=== PATIENT | female | born 1970 | race Two or more races ===

== ENCOUNTER 2024-07-20 13:22 | Emergency (ER) | payer MEDICAID, SELFPAY ==
[2024-07-20 13:24] VITALS: BMI 24.7
[2024-07-20 13:38] VITALS: BP 117/76; PULSE 55; RESP 18; TEMP 36.9; O2SAT 97
--- NOTE | 2024-07-20 13:43 | XR_ITS ---
Examination: CT abdomen and pelvis without contrast. Coronal 3-D reconstructions. Sagittal 2-D reconstructions. Date and time of exam:July 20, 2024 1558 hours INDICATIONS: Right-sided flank pain beginning this morning CTDI: vol (mGy): 7.96 DLP: (mGycm): 431 Technique: Axial images of the abdomen have been obtained, 3 mm slice thickness Intravenous contrast material has not been administered. Low dose protocols were performed. One or more of the following dose reduction techniques were used; automated exposure control, adjustment of the mA and/or KV according to patient size, use of iterative reconstruction technique. Findings: 23 mm right liver cyst Contracted gallbladder Spleen not enlarged No pancreatic or adrenal mass 1 mm nonobstructing right renal calculus Aorta normal size No hydronephrosis or ureteral calculi Normal appendix No bowel obstruction Anteverted uterus Trace free fluid in the pelvis No bladder mass or bladder calculi IMPRESSION: 1 mm nonobstructing right renal calculus No hydronephrosis or ureteral calculi Normal appendix No bladder mass or bladder calculi
--- NOTE | 2024-07-20 13:43 | EKG_ITS ---
[facility] Test Date: 2024-07-20 Pat Name: ISABEL APONTE Department: Room: - Gender: Female [employer]: : 1970 Requested By: Berto Mckeon (ARLENE) Order Number: [id number] Reading MD: Berto Mckeon (NURSE EPIDEMIOLOGIST) Measurements Intervals [place] Rate: 59 P: 53 MD: 134 QRS: 19 QRSD: 84 T: 30 QT: 428 QTc: 427 Interpretive Statements SINUS BRADYCARDIA POSSIBLE RIGHT VENTRICULAR CONDUCTION DELAY [RSR (QR) IN V1/V2] No previous ECG available for comparison /store/S0/[id number]/ecg/[id number].pdf
--- NOTE | 2024-07-20 13:43 | PD.EDRME ---
Rapid Medical Screening Exam RME Arrival date/time: 07/20/24 13:22 53-year-old female presents to the emergency department complains of back pain and abdominal pain patient does report pain is worse with movement Chief Complaint: Back Pain/Injury Vital signs: Vital Signs Temperature 98.4 F 07/20/24 13:38 Pulse Rate 55 L 07/20/24 13:38 Respiratory Rate 18 07/20/24 13:38 Blood Pressure 117/76 07/20/24 13:38 Pulse Oximetry (%) 97 07/20/24 13:38 Oxygen Delivery Method Room Air 07/20/24 13:38
[2024-07-20 14:08] LABS: Basophils # (Auto) 0.1 Thou/mm3 (0.0-0.2); Basophils % (Auto) 1 % (0-2.5); Eosinophils % (Auto) 1 % (0-10); Hematocrit 41.1 % (36.0-46.0); Immature Granulocytes % (Auto) 0 % (0-0); Immature Granulocytes Auto 0.02 Thou/mm3 (0.00-0.00); Lymphocytes # (Auto) 2.3 Thou/mm3 (1.0-4.8); Lymphocytes % (Auto) 26 % (10-50); Mean Corpuscular HGB Conc 34.1 g/dl (31.0-37.0); Mean Corpuscular Hemoglobin 30.2 pg (25.0-35.0); Mean Corpuscular Volume 89 fL (80-100); Monocytes # (Auto) 0.4 Thou/mm3 (0.0-0.8); Monocytes % (Auto) 4 % (0-12); Neutrophils # (Auto) 6.1 Thou/mm3 (1.8-7.7); Neutrophils % (Auto) 68 % (37-80); Nucleated Red Blood Cell % 0 /100 WBC (0); Platelet Count 282 Thou/mm3 (140-440); RDW Standard Deviation 41.2 fL (36.4-46.3); Red Blood Count 4.64 Miln/mm3 (4.00-5.20); White Blood Count 8.9 Thou/mm3 (3.6-11.0)
[2024-07-20 14:29] LABS: Alanine Aminotransferase 20 U/L (10-49); Albumin, Serum 4.5 gm/dL (3.5-5.0); Albumin/Globulin Ratio 1.4 (1.2-2.2); Alkaline Phosphatase 108 U/L (46-116); Anion Gap 6 (7-16); Aspartate Amino Transferase 24 U/L (0-34); BUN/Creatinine Ratio 22 Ratio (12-20); Bilirubin,Total 0.5 mg/dL (0.3-1.2); Blood Urea Nitrogen 13 mg/dL (9-23); Calcium 9.2 mg/dL (8.3-10.6); Calcium (Corrected) 9.2 mg/dL (8.5-10.1); Carbon Dioxide 28.2 mMol/L (20.0-31.0); Chloride 108 mMol/L (98-107); Creatinine (Component) 0.6 mg/dL (0.6-1.3); Estimated Creatinine Clearance 107.9 mL/min (>60); Globulin 3.2 gm/dL (2.3-3.5); Glucose 93 mg/dL (74-106); Lipase 38 U/L (12-53); Osmolality,Calculated 283 (275-295); Sodium 142 mMol/L (136-145); Total Protein 7.7 gm/dL (5.7-8.2); Troponin I < 0.002 ng/mL (0.0-0.045); eGFR > 60 See Note
[2024-07-20 14:38] LABS: Collection Type, Urine Clean Catch
[2024-07-20 15:15] LABS: Bacteria,Urine Rare; Bilirubin,Urine Negative (Negative); Blood,Urine Trace (Negative); Clarity,Urine Clear (Clear/Hazy); Color,Urine Lt-Yellow (Lt Yel-Yel); Glucose, Urine Negative (Negative); Ketones,Urine Negative (Negative); Leukocyte Esterase,Urine Positive (Negative); Nitrite,Urine Negative (Negative); Protein,Urine Negative (Neg - Trace); RBC,Urine 1 /hpf (0-3); Specific Gravity,Urine 1.014 (1.001-1.035); Squamous Epithelial Cell,Urine 7 /hpf (0-5); Urobilinogen,Urine Negative mg/dL (0.0-1.0); WBC,Urine 22 /hpf (0-5)
[2024-07-20 15:27] LABS: HCG Qualitative,Urine Negative
[2024-07-20 15:31] LABS: Culture Indicated,Urine Yes
--- NOTE | 2024-07-20 17:19 | EDNOTE_ITS ---
ED General RME/HPI General Chief complaint: Back Pain/Injury Stated complaint: BACK/ABD PAIN Arrival date/time: 07/20/24 13:22 RME / HPI RME / HPI narrative: 07/20/24 13:22 53-year-old female presents to the emergency department complains of back pain and abdominal pain patient does report pain is worse with movement DR. SHARP MAIN ED EVALUATION: 53 year old female presents to the Emergency Department with complaints of right flank pain and mid back pain. Onset of pain 9 am today. Pain is described as aching and rated moderate in severity. No fevers or chills. No vomiting and diarrhea. No dysuria. PMHx: Gastritis and takes omeprazole. Denies any surgeries, daily medications, or known allergies. Social Hx: No tobacco, alcohol, or substance use. Related Data Previous Rx's ?Medication ?Instructions ?Recorded famotidine 40 mg tablet (Pepcid) 40 mg PO QDAY #7 tabs 07/20/24 levofloxacin 500 mg tablet 500 mg PO QDAY 3 days #3 ta bs 07/20/24 Allergies Allergy/AdvReac Type Severity Reaction Status Date / Time Penicillins AdvReac Severe Rash Verified 07/20/24 13:27 Review of Systems Review of Systems Systems Reviewed: All systems reviewed, normal except as documented Narrative Review of Systems: GEN: No fever, no chills, no weight loss EYES: No discharge, no visual changes, no pain HEENT: No ear pain, no congestion, no sore throat PULM: No shortness of breath, no cough, no congestion CV: No chest pain, no dyspnea on exertion, no palpitations GI: No nausea, no vomiting, no diarrhea, + right flank pain, no constipation : No frequency, no urgency and no dysuria MUSC/SKEL: No joint pain, + mid back pain SKIN: No rash PSYCH: No hallucinations, no depression HEME/LYMPH: No easy bleeding or bruising tendencies NEURO: No weakness, no headache Past Medical History Social History SMOKING STATUS: Never smoker SUBSTANCE USE: does not use ALCOHOL: Never ED Exam Narrative Physical exam: GENERAL APPEARANCE: Well hydrated, well nourished, in no acute distress. VITALS: All vitals were reviewed and the pulse ox is 97% on room air which is normal according to my interpretation. HEENT: Normocephalic, atramatic, EOMI, EACs are patent. There is no bulge or retraction. Throat without erythema or exudate. Moist oromucosa. No jaundice NECK: Supple, no JVD or bruits. CARDIOVASCULAR: Heart regular without S3-S4 or murmur. No rubs or gallops. LUNGS/CHEST: Clear to auscultation bilaterally. No rales, rhonchi, or wheezing. Normal inspection. ABDOMEN: Soft, nontender, with normal bowel sounds. No pulsatile masses. No rebound, rigidity, or guarding. No incarcerated hernia. Normal inspection and palpation. EXTREMITIES: No edema, clubbing, or cyanosis. Intact CSM. Normal inspection and palpation. SKIN: Warm and dry without rashes. Normal inspection. MUSCULOSKELETAL: No gross deformity, full ROM all extremities. Normal inspection. NEURO: Alert and oriented x3. Cranial nerves II through XII grossly intact. There are no other motor or sensory deficits noted. PSYCHIATRIC: Normal mood and affect. No psychosis. Course Quality Measures none Orders Category Date Time Status EKG (ED ONLY) *Do not use* NOW Care 07/20/24 13:[address] abdomen pelvis wo con Stat Exams 07/20/24 13:43 Completed EKG (ED Only) Stat Exams 07/20/24 13:43 Draft CBC Stat Lab 07/20/24 13:56 Completed Comprehensive Metabolic Panel Stat Lab 07/20/24 13:56 Completed HCG Qualitative,Urine Stat Lab 07/20/24 14:10 Completed Lipase Stat Lab 07/20/24 13:56 Completed Troponin I Stat Lab 07/20/24 13:56 Completed UA, C/S IF [Urinalysis, C/S if Indicated] Stat Lab 07/20/24 14:10 Completed Urine Culture Stat Lab 07/20/24 14:10 Received Vital Signs Vital signs: Vital Signs Temperature 98.4 F 07/20/24 13:38 Pulse Rate 55 L 07/20/24 13:38 Respiratory Rate 18 07/20/24 13:38 Blood Pressure 117/76 07/20/24 13:38 Pulse Oximetry (%) 97 07/20/24 13:38 Oxygen Delivery Method Room Air 07/20/24 13:38 [facility] Patient data External records reviewed:: None (no previous visits) Clinical information provided by:: patient Social determinants that could affect healthcare access:: none Patient has the following chronic illnesses:: Gastritis and takes omeprazole. Denies any surgeries, daily medications, or known allergies. How is presenting disease/condition affected by chronic disease/condition?: e xacerbated by Evaluation data The following diagnostics were reviewed and interpreted by me:: lab results, radiology exam(s) and EKG tracing(s) Lab and/or radiology exams considered but not ordered:: none Interpretation Summary: See above under MDM narrative. RADIOLOGY Procedure(s): CT abdomen pelvis wo [facility] Accession Number(s): [id number] cc: Mike (ARLENE),Berto JACOBS; Dwain Simmons MD; Yaya Beal MD~ Examination: CT abdomen and pelvis without contrast. Coronal 3-D reconstructions. Sagittal 2-D reconstructions. Date and time of exam:July 20, 2024 1558 hours INDICATIONS: Right-sided flank pain beginning this morning CTDI: vol (mGy): 7.96 DLP: (mGycm): 431 Technique: Axial images of the abdomen have been obtained, 3 mm slice thickness Intravenous contrast material has not been administered. Low dose protocols were performed. One or more of the following dose reduction techniques were used; automated exposure control, adjustment of the mA and/or KV according to patient size, use of iterative reconstruction technique. Findings: 23 mm right liver cyst Contracted gallbladder Spleen not enlarged No pancreatic or adrenal mass 1 mm nonobstructing right renal calculus Aorta normal size No hydronephrosis or ureteral calculi Normal appendix No bowel obstruction Anteverted uterus Trace free fluid in the pelvis No bladder mass or bladder calculi IMPRESSION: 1 mm nonobstructing right renal calculus No hydronephrosis or ureteral calculi Normal appendix No bladder mass or bladder calculi Dictated By: Yaya Beal MD Medications Medications considered but not ordered:: none Medication administrations:: see above if any Consultations Consultation(s) initiated? (list below): No Diagnosis Differential Diagnosis ED Complaint MDM: Abdominal pain. Gastritis. Kidney stone. Urinary tract infection. Most likely diagnosis given after review of the tests above:: Gastritis. Kidney stone. Urinary tract infection. Admission Indicated Admission indicated?: not indicated Explain why admission is indicated or not indicated:: Patient has no emergent abnormalities on his studies and can be managed on an outpatient basis. Admission Request Was there a request for admission?: No Disposition Plan Disposition Plan: Discharge Discharge Attestation Discharge Attestation: The patient and all family members were given an opportunity to ask questions and understood the discharge instructions. Discharge instructions specifically effects, indications for sooner follow up or return to the emergency department, and the expected course of current diagnosis. Patient condition: Stable Medical Decision Making MDM Narrative MDM Narrative: I, Atiya Hutchison, am scribing for and in the presence of Dr. Sharp. CBC unremarkable. CMP and lipase are negative. UA is positive for some bacteria. Which I consider mild UTI. test is negative. Troponin is negative. Twelve-lead EKG at 1347 interpreted by me: Sinus bradycardia. Heart rate of 59. Normal axis. No ST elevation or depression. No PVC. No STEMI. Regular rate and rhythm. CT abdomen and pelvic reviewed by and interpreted by me as follow: No free fluid. No free air. No stranding. Tiny 1 mm stone in the right kidney. No hydronephrosis. No hydroureter. Plenty of stool. 1 liver cysts. Pancreas and spleen unremarkable. No stranding around the pericecal area. There is no surgical abdomen at this time. Will treat her for mild UTI. And she is aware that she had a kidney stone. Differential Diagnosis Differential Diagnosis: Abdominal pain. Gastritis. Kidney stone. Urinary tract infection. Lab Data 07/20/24 13:56 07/20/24 13:56 Labs: Lab Results 07/20/24 07/20/24 Range/Units 13:56 14:10 WBC 8.9 (3.6-11.0) Thou/mm3 RBC 4.64 (4.00-5.20) Miln/mm3 Hgb 14.0 (12.0-16.0) g/dL Hct 41.1 (36.0-46.0) % MCV 89 (80-100) fL MCH 30.2 (25.0-35.0) pg MCHC 34.1 (31.0-37.0) g/dl RDW Std Deviation 41.2 (36.4-46.3) fL Plt Count 282 (140-440) Thou/mm3 Neut % (Auto) 68 (37-80) % Lymph % (Auto) 26 (10-50) % [place] % (Auto) 4 (0-12) % Eos % (Auto) 1 (0-10) % Baso % (Auto) 1 (0-2.5) % Neut # (Auto) 6.1 (1.8-7.7) Thou/mm3 Lymph # (Auto) 2.3 (1.0-4.8) Thou/mm3 [place] # (Auto) 0.4 (0.0-0.8) Thou/mm3 Eos # (Auto) 0.0 (0.0-0.5) Thou/mm3 Baso # (Auto) 0.1 (0.0-0.2) Thou/mm3 Immature Gran # (Auto) 0.02 H (0.00-0.00) Thou/mm3 Absolute Nucleated RBC 0.00 (0.00-0.00) Thou/mm3 Immature Gran % 0 (0-0) % Nucleated RBC % 0 (0) /100 WBC Sodium 142 (136-145) mMol/L Potassium 4.0 (3.4-5.1) mMol/L Chloride 108 H (98-107) mMol/L Carbon Dioxide 28.2 (20.0-31.0) mMol/L Anion Gap 6 L (7-16) BUN 13 (9-23) mg/dL Creatinine 0.6 (0.6-1.3) mg/dL Estim Creat Clear Calc 107.9 (>60) mL/min eGFR > 60 (60 - ) See Note BUN/Creatinine Ratio 22 H (12-20) Ratio Glucose 93 (74-106) mg/dL Calculated Osmolality 283 (275-295) Calcium 9.2 (8.3-10.6) mg/dL Corrected Calcium 9.2 (8.5-10.1) mg/dL Total Bilirubin 0.5 (0.3-1.2) mg/dL AST 24 (0-34) U/L ALT 20 (10-49) U/L Alkaline Phosphatase 108 (46-116) U/L Troponin I < 0.002 (0.0-0.045) ng/mL Total Protein 7.7 (5.7-8.2) gm/dL Albumin 4.5 (3.5-5.0) gm/dL Globulin 3.2 (2.3-3.5) gm/dL Albumin/Globulin Ratio 1.4 (1.2-2.2) Lipase 38 (12-53) U/L Ur Collection Type Clean Catch Urine Color Lt-Yellow (Lt Yel-Yel) Urine Clarity Clear (Clear/Hazy) Urine pH 6.0 (5.0-7.0) Ur Specific [place] 1.014 (1.001-1.035) Urine Protein Negative (Neg - Trace) Urine Glucose (UA) Negative (Negative) Urine Ketones Negative (Negative) Urine Blood Trace (Negative) Urine Nitrite Negative (Negative) Urine Bilirubin Negative (Negative) Urine Urobilinogen (Auto) Negative (0.0-1.0) mg/dL Ur Leukocyte Esterase Positive (Negative) Urine RBC 1 (0-3) /hpf Urine WBC 22 H (0-5) /hpf Ur Squamous Epith Cells 7 H (0-5) /hpf Urine Bacteria Rare (None) Ur Culture Indicated? Yes Urine HCG, Qual Negative Discharge Plan Plan Patient Disposition: HOME (Self Care) Disposition Comment: Stable for [place] home Prescriptions/Referrals Prescriptions/Med Rec: New levofloxacin 500 mg tablet 500 mg PO QDAY 3 Days Qty: 3 0RF famotidine [Pepcid] 40 mg tablet 40 mg PO QDAY Qty: 7 0RF Referrals: Dwain Simmons MD [Primary Care Provider] - In 1 week Problem List Clinical Impression: Abdominal pain, Gastritis, Urinary tract infection, Kidney stone on right side Patient/Caregiver Discharge Instructions Education Materials: Urinary Tract Infections in Women, ED Gastritis (Adult), ED Kidney Stone Undescended No ... Additional Instructions: Medication as prescribed. See your doctor for recheck in 3 days. Return to the nearest emergency department if condition worsens or if new symptoms develop. Print Language: Kazakh Stand Alone Forms: Junie Award Info., Patient Portal Info Letter
== END 2024-07-20 18:27 | disposition home or self-care (01) ==
PROVIDERS: Nurse Practitioner Primary Care; Emergency Provider Emergency Medicine; PCP Family Medicine
DX: K29.70 Gastritis, unspecified, without bleeding (principal); N39.0 Urinary tract infection, site not specified; N20.0 Calculus of kidney; K76.89 Other specified diseases of liver; R00.1 Bradycardia, unspecified; Z79.899 Other long term (current) drug therapy
CPT/HCPCS: 36415; 74176; 80053; 81001; 81025; 83690; 84484; 85025; 87086; 93005; 99284